=== PATIENT | female | born 1990 | race Caucasian/White ===

== ENCOUNTER → 2018-01-24 00:40 | Emergency (ER) | payer OTHER ==
--- NOTE | 2018-01-24 02:48 | ED ---
Lower Extremity - HPI Summary HPI Summary: This patient is a 27 year old F presenting to [facility] accompanied by her with a chief complaint of right foot pain since 1 day ago. Patient reports that the pain began after she fell down 4 stairs. Patient reports that she initially was able to walk but the pain worsened today. The patient rates the pain 8/10 in severity. Symptoms aggravated by bearing weight. Symptoms alleviated by nothing. Patient is 38 weeks . Patient reports that she has been icing the injury all day. - History of Current Complaint Chief Complaint: EDExtremityLower Stated Complaint: ANKLE INJURY Hx Obtained From: Patient Mechanism Of Injury: Fall From Height Of: - 4 stairs Onset of Pain: Immediate Onset/Duration: Days - 1 day Severity Initially: Mild Severity Currently: Moderate Pain Intensity: 8 Pain Scale Used: 0-10 Numeric Timing: Constant Location: Is Discrete @ - right foot Associated Signs And Symptoms: Positive: Negative Aggravating Factor(s): Standing, Weight Bearing Alleviating Factor(s): Other - Allergies/Home Medications Allergies/Adverse Reactions: Allergies Allergy/AdvReac Type Severity Reaction Status Date / Time No Known Allergies Allergy Verified 01/24/18 00:44 Home Medications: Home Medications Vitamin Tablet 01/24/18 [History] PMH/Surg Hx/FS Hx/Imm Hx Endocrine/Hematology History: Denies: Hx Diabetes Opthamlomology History: Denies: Hx Legally Blind EENT History: Denies: Hx Deafness - Surgical History Surgery Procedure, Year, and Place: none Infectious Disease History: No Infectious Disease History: Denies: Traveled Outside the [place] in Last 30 Days - Family History Known Family History: Negative: Diabetes - Social History Alcohol Use: None Substance Use Type: Reports: None Smoking Status (MU): Never Smoked Tobacco Review of Systems Negative: Fever Negative: Epistaxis Negative: Cough Negative: Vomiting Musculoskeletal: Other - right foot pain All Other Systems Reviewed And Are Negative: Yes Physical Exam - Summary Physical Exam Summary: Appearance: Well-appearing, Well-nourished, lying in bed comfortably Skin: Warm, dry, no obvious rash Eyes: sclera anicteric, no conjunctival pallor ENT: mucous membranes moist, pharynx appears normal Neck: Supple, nontender Respiratory: Clear to auscultation, no signs of respiratory distress Cardiovascular: Normal S1, S2. No murmurs. Normal distal pulses in tibial and radial bilaterally. Abdomen: Soft, nontender, normal active bowel sounds present Musculoskeletal: Strength/ROM Intact, Tenderness at base of right 5th metatarsal , no tenderness or swelling about the right ankle Neurological: A&Ox3, awake and alert, mentation is normal, speech is fluent and appropriate Psychiatric: affect is normal, does not appear anxious or depressed Triage Information Reviewed: Yes Vital Signs On Initial Exam: Initial Vitals Temp Pulse Resp BP Pulse Ox 98.6 F 89 16 120/74 98 01/24/18 00:42 01/24/18 00:42 01/24/18 00:42 01/24/18 00:42 01/24/18 00:42 Vital Signs Reviewed: Yes Diagnostics - Vital Signs Vital Signs Temp Pulse Resp BP Pulse Ox 01/24/18 01:08 82 95 01/24/18 01:01 85 121/78 97 01/24/18 00:42 98.6 F 89 16 120/74 98 - Laboratory Lab Statement: Any lab studies that have been ordered have been reviewed, and results considered in the medical decision making process. - Radiology Right Foot XR Radiology Interpretation Completed By: ED Physician Summary of Radiographic Findings: No fracture Lower Extremity Course/Dx - Course Course Of Treatment: This patient is a 27 year old 38 week F reporting right foot pain since 1 day ago. Patient reports that the pain began after she fell down 4 stairs. Patient reports that she initially was able to walk but the pain worsened today. Right foot XR reveals no fracture. Patient will be discharged home with follow up from PCP. The patient is agreeable with this plan. - Diagnoses Provider Diagnoses: Right foot sprain Discharge - Sign-Out/Discharge Documenting (check all that apply): Patient Departure - Discharge Plan Condition: Stable Disposition: HOME Patient Education Materials: Foot Sprain (ED) Referrals: Balwinder Carr MD [Medical Doctor] - 1 Week (if not improving ) - Billing Disposition and Condition Condition: STABLE Disposition: Home - Attestation Statements Document Initiated by Scribe: Yes Documenting Scribe: Helen Orellana Provider For Whom Scribe is Documenting (Include Credential): Ben Nur MD Scribe Attestation: Helen Dorantes, scribed for Ben Nur MD on 01/28/18 at 0226. Scribe Documentation Reviewed: Yes Provider Attestation: The documentation as recorded by the fraciscoibe, Helen Orellana accurately reflects the service I personally performed and the decisions made by me, Ben Nur MD Status of Tamara Document: Viewed
[2018-01-24 03:06] VITALS: BP 116/80
== END | disposition home or self-care (01) ==
LOC: ED 00:40
DX: O26.893 Other specified pregnancy related conditions, third trimester (principal); S93.601A Unspecified sprain of right foot, initial encounter; W10.9XXA Fall (on) (from) unspecified stairs and steps, initial encounter; Y92.9 Unspecified place or not applicable; Z3A.38 38 weeks gestation of pregnancy
CPT/HCPCS: 99282

== ENCOUNTER 2018-02-13 13:43 | Inpatient (IN) | payer OTHER ==
[2018-02-13 15:26] LABS: Hematocrit 41 % (35-47); Hemoglobin 13.7 g/dl (12.0-16.0); Mean Corpuscular HGB Conc 34 g/dl (31-36); Mean Corpuscular Hemoglobin 30 pg (27-31); Mean Corpuscular Volume 89 fL (80-97); Platelet Count 121 10^3/ul (150-450); Red Blood Count 4.62 10^6/ul (4.00-5.40); Red Cell Distribution Width 15 % (10.5-15); White Blood Count 12.2 10^3/ul (3.5-10.8)
[2018-02-13] MEDS ORDERED: Lactated Ringers 1000 ML Bag* 1,000 ML IV ONE ×2 (15:51→17:17)
[2018-02-13] MEDS ORDERED: Lactated Ringers 1000 ML Bag* 1,000 ML IV SCH ×3 (16:00→22:00)
--- NOTE | 2018-02-13 16:01 | HP ---
General Information - Reason for Visit Patient with a at 40 3/7 weeks EGA in labor. - General Information Maternal Age: 27 Grav: 3 Para: 0 SAB: 2 IEA: 0 Estimated Due Date: 02/10/18 Determined By: Early Ultrasound Gestational Age in Weeks/Days: 40 3/7 Maternal Blood Type and Rh: O Negative - Results this Serology/RPR Result: Non-Reactive Rubella Result: Immune HBsAg Result: Negative HIV Result: Negative GBS Culture Result: Negative Past Medical History Delivery History: See Records Pertinent Past Medical History: See Records Past Medical History Comment: None Pertinent Past Surgical History: See Records Past Surgical History Comment: None Pertinent Family History: See Records Family History Comment: CVd, Breast and colon cancer, Diabetes. - Antepartal Records Antepartal Records: Reviewed, Complicated by: - gestational thrombocytopenia mild Review of Systems Constitutional: Uncomfortable CV Complaint: No Respiratory: Shortness of Breath: No Gastrointestinal: No Nausea/Vomiting Genitourinary: No Dysuria, No Bleeding, No Leaking Fluid Musculoskeletal: No Complaint, No Epigastric Pain Neurological: No Headache, No Visual Changes Movement: Normal Exam Allergies/Adverse Reactions: Allergies No Known Allergies Allergy (Verified 02/13/18 14:36) Temp 98.3 BP 121/73 P 84 RR 18 Pulse Ox 98 % RA Lab Values - Entire Visit: Laboratory Tests 02/13/18 02/13/18 14:55 14:55 WBC 12.2 H RBC 4.62 Hgb 13.7 Hct 41 MCV 89 MCH 30 MCHC 34 RDW 15 Plt Count 121 L MPV 10.0 Blood Type O Negative Antibody Screen Negative - Measurements Height: 5 ft 7.32 in Weight: 181 lb Weight in lbs: 181.439152 Body Mass Index (BMI): 28.0 Pre- Weight: 170 lb Weight Gained This : 11 lbs and 0 ozs - Exam Breast: Breast Exam Deferred CVA: No CVA Tenderness Extremities: No Edema Heart: Normal Rhythm/Heart Sounds HEENT: No Significant Findings Lungs: Clear Bilaterally Rectal: Rectal Exam Deferred Reflexes: DTR 2+ - Abdominal Exam Abdomen Exam: Non-Tender, Fundal Height Consistent with Dates - Ultrasound/Biophysical Profile Biophysical Profile: Normal Reactive NST Targeted Exam Findings See L&D Outpatient Visit Provider Note for Findings: N/A Cervical Exam: 6cm Effacement: 90% Station: -1 Presenting Part: Vertex Membrane Status: Intact Bleeding/Discharge: None EFM Findings - External Monitor Findings Baseline Heart Rate: 140 External Monitor Findings: Accelerations Present Contractions: Regular - q 3-4 min apart, Moderate, < 45 Seconds Assessment/Plan - Assessment Term in labor. - Obstetrical Risk Factors Risk Factors Comment: Mild Gestational Thrombocytopenia - Plan Plan: IV Hydration, Admit - Anticipate Vaginal Delivery - Date/Time of Admission Date of Admission: 02/13/18 Time of Admission: 16:05
[2018-02-13] MEDS ORDERED: OBEPIDURAL* 250 ML EPIDURAL ONE (16:40)
[2018-02-13] MEDS ORDERED: Phenylephrine IV* 40 MCG/ML 10 ML SYRINGE IV PUSH PRN (17:17)
[2018-02-13] MEDS ORDERED: Sodium Citrate/Citric Acid* 15 ML UDC PO PRN (17:17)
[2018-02-13] MEDS ORDERED: EPHEDrine (Pressors)* 50 MG/ML VIAL IV PUSH PRN (17:17)
[2018-02-13] MEDS ORDERED: Famotidine TAB* 20 MG PO PRN (17:17)
[2018-02-13] MEDS ORDERED: OBEPIDURAL* 250 ML EPIDURAL SCH (18:00)
[2018-02-13] MEDS ORDERED: OXYTOCIN* 10 UNITS/ML 1 ML VIAL ONE (21:10)
[2018-02-13] MEDS ORDERED: Glycerin ADULT SUPP PR PRN (21:27)
[2018-02-13] MEDS ORDERED: Witch Hazel PAD* JAR TOPICAL PRN (21:27)
[2018-02-13] MEDS ORDERED: Acetaminophen TAB* 325 MG PO PRN (21:27)
[2018-02-13] MEDS ORDERED: Tetan/Diph/Pertus SYR(Tdap)* 0.5 ML SYR(BOOSTRIX) use SYR IM ONE (21:27)
[2018-02-13] MEDS ORDERED: Dibucaine 1% 28.35 GM TUBE PR PRN (21:27)
--- NOTE | 2018-02-13 21:27 | PROCNOTE ---
[facility] OB: Delivery Note - Delivery A Date of : 02/13/18 Time of : 09:00 Weight at : 7 lb 2 oz Score 1 Minute: 9 Score 5 Minutes: 10 Gestational Age in Weeks and Days at Delivery: 40 Weeks and 3 Days Delivery Method: Spontaneous Vaginal Labor: Spontaneous Did Patient attempt ?: N/A, No Previous Amniotic Fluid: Meconium Anesthesia/Analgesia: ITF/Spinal for Labor, Nitrous-Labor Delivered By: Vladimir Lawrence - Nursery Level of Nursery: Regular/Bedside - Perineum Perineal Injury: Perineal Laceration, 2nd Degree Perineal Repair: By Delivering Practioner - Events Delivery Events of Note: None Apply
[2018-02-14] MEDS: Ibuprofen TAB* 600 MG PO PRN ×3 (00:02→19:58)
[2018-02-14 07:02] LABS: ABS Basophils 0.1 10^3/ul (0-0.2); ABS Eosinophils 0 10^3/ul (0-0.6); ABS Lymphocytes 1.6 10^3/ul (1.0-4.8); ABS Monocytes 0.8 10^3/ul (0-0.8); ABS Neutrophils 10.9 10^3/ul (1.5-7.7); ABS Nucleated RBC 0 10^3/ul; Eosinophil % 0.2 %; Hematocrit 36 % (35-47); Hemoglobin 12.3 g/dl (12.0-16.0); Lymphocyte % 12.1 %; Mean Corpuscular HGB Conc 34 g/dl (31-36); Mean Corpuscular Hemoglobin 30 pg (27-31); Mean Corpuscular Volume 88 fL (80-97); Mean Platelet Volume 9.4 fL (7.4-10.4); Nucleated Red Blood Cells % 0; Platelet Count 109 10^3/ul (150-450); Red Blood Count 4.11 10^6/ul (4.00-5.40); Red Cell Distribution Width 15 % (10.5-15); White Blood Count 13.4 10^3/ul (3.5-10.8)
[2018-02-14] MEDS ORDERED: Simethicone TAB* 80 MG TAB.CHEW PO SCH (08:30)
[2018-02-14] MEDS ORDERED: Ferrous Gluconate TAB* 324 MG TAB PO SCH (09:00)
[2018-02-14] MEDS: Docusate CAP* 100 MG PO SCH ×2 (10:00→19:58)
[2018-02-15 05:53] LABS: ABS Basophils 0 10^3/ul (0-0.2); ABS Eosinophils 0.1 10^3/ul (0-0.6); ABS Monocytes 0.8 10^3/ul (0-0.8); ABS Neutrophils 8.4 10^3/ul (1.5-7.7); ABS Nucleated RBC 0 10^3/ul; Eosinophil % 0.6 %; Hematocrit 35 % (35-47); Hemoglobin 12.1 g/dl (12.0-16.0); Mean Corpuscular HGB Conc 34 g/dl (31-36); Mean Corpuscular Hemoglobin 30 pg (27-31); Mean Corpuscular Volume 89 fL (80-97); Mean Platelet Volume 9.2 fL (7.4-10.4); Nucleated Red Blood Cells % 0; Platelet Count 119 10^3/ul (150-450); Red Blood Count 3.97 10^6/ul (4.00-5.40); Red Cell Distribution Width 15 % (10.5-15); White Blood Count 11.3 10^3/ul (3.5-10.8)
[2018-02-15] MEDS: Docusate CAP* 100 MG PO SCH (08:32)
[2018-02-15 08:33] VITALS: BP 117/90
== END 2018-02-15 11:20 | disposition home or self-care (01) | DRG 806 ==
LOC: MCHOBOUT 13:43 → MCHOB 14:19
PROVIDERS: ADMIT Obstetrics & Gynecology; ATTEND Obstetrics & Gynecology
PROC: 10E0XZZ Delivery of Products of Conception, External Approach (ICD-10-PCS; principal; 2018-02-13)
PROC: 0KQM0ZZ Repair Perineum Muscle, Open Approach (ICD-10-PCS; 2018-02-13)
PROC: 10907ZC Drainage of Amniotic Fluid, Therapeutic from Products of Conception, Via Natural or Artificial Opening (ICD-10-PCS; 2018-02-13)
DX: O48.0 Post-term pregnancy (principal); O99.12 Other diseases of the blood and blood-forming organs and certain disorders involving the immune mechanism complicating childbirth; Z37.0 Single live birth; Z3A.40 40 weeks gestation of pregnancy; D69.6 Thrombocytopenia, unspecified; O70.1 Second degree perineal laceration during delivery; O77.0 Labor and delivery complicated by meconium in amniotic fluid
CPT/HCPCS: 36415; 85025; 85027; 86850; 86900; 86901; 90686; A9270-GY; J2590